=== PATIENT | male | born 1985 | race Caucasian/White ===

== ENCOUNTER 2021-09-17 13:20 | Emergency (ER) | payer OTHER, SELFPAY ==
[2021-09-17 13:26] VITALS: BP 121/78; PULSE 89; RESP 18; TEMP 37.4; O2SAT 97
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
[2021-09-17] MEDS: Ibuprofen 600 MG TAB PO (14:18)
[2021-09-17] MEDS: oxyCODONE 5 MG TAB PO (14:18)
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
[2021-09-17 15:25] LABS: Abs Immature Grans 0.03 10^3/uL (0.0-0.06); Absolute Basophil Count 0.02 10^3/uL (0.0-0.2); Absolute Lymphocyte Count 0.94 10^3/uL (1.2-3.4); Absolute Monocyte Count 0.45 10^3/uL (0.1-0.8); Absolute Neutrophil Count 10.73 10^3/uL (1.2-6.7); Basophils % 0.2; HCT 41.8 % (40.0-50.0); HGB 14.3 g/dL (13.5-17.5); Immature Grans % 0.2; Lymphocytes % 7.7; MCH 30.8 pg (27.0-33.0); MCHC 34.2 % (32.0-36.0); MCV 90 fL (80-95); MPV 9.9 fL (8.0-11.0); Monocytes % 3.7; Neutrophils % 88.2; Platelet Count 247 10^3/uL (130-400); RBC 4.64 10^6/uL (4.36-5.78); RDW 12.3 % (11.8-14.1); RDW-SD 40.3 fL; WBC 12.17 10^3/uL (4.4-10.8)
[2021-09-17] MEDS: Omnipaque 350 MG/ML 100 ML BTL IJ (15:36)
[2021-09-17] MEDS: Normal Saline Flush 10 ML SYR IVP (15:37)
[2021-09-17 15:40] LABS: ALT 38 U/L (16-63); AST 23 U/L (15-37); Albumin 4.2 g/dL (3.4-5.0); Alkaline Phosphatase 65 U/L (46-116); Anion Gap 9.3 mmol/L (3-11); BUN 26 mg/dL (7-18); Bilirubin, Total 0.4 mg/dL (0.2-1.0); CO2 26.7 mmol/L (21.0-32.0); CREATININE 0.9 mg/dL (0.70-1.30); Calcium 8.9 mg/dL (8.5-10.1); Chloride 104 mmol/L (98-107); Glucose 97 mg/dL (74-106); Potassium 4.1 mmol/L (3.5-5.1); Sodium 140 mmol/L (136-145); Total Protein 7.4 g/dL (6.4-8.2)
[2021-09-17] MEDS: Normal Saline 1,000 ML 1000 ML IV (15:40)
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
[2021-09-17 16:00] VITALS: BP 130/71; PULSE 88; TEMP 37.4; O2SAT 100
[2021-09-17 16:36] VITALS: BP 118/78; PULSE 60; RESP 16; TEMP 36.6; O2SAT 99
== END 2021-09-17 18:37 | disposition home or self-care (01) ==
PROVIDERS: Emergency Provider Physician Assistant
DX: S42.001A Fracture of unspecified part of right clavicle, initial encounter for closed fracture (principal); V19.9XXA Pedal cyclist (driver) (passenger) injured in unspecified traffic accident, initial encounter; R93.89 Abnormal findings on diagnostic imaging of other specified body structures
CPT/HCPCS: 36415; 71275; 80053; 96360; 99285; 71046; 71100; 73000; 85025; 99284; J3490